=== PATIENT | female | born 1935 | race Caucasian/White ===

== ENCOUNTER 2016-12-31 10:23 | Inpatient (IN) ==
--- NOTE | 2016-12-31 11:02 | EKG Report ---
Stationary ECG Study [facility] ER Test Date: 12/31/2016 10:50:10 AM Pat Name: ANNMARIE TURKMEN Department: Room: Gender: F [employer] Sales Manager: : 1935 Requested by: David Tobin Order Number: [id number] Reading MD: ADAMA SANTIAGO Intervals [place] Rate: 72 P: 36 WV: 199 QRS: 77 QRSD: 90 T: -9 QT: 397 QTc: 421 Interpretive Statements SINUS RHYTHM LOW QRS VOLTAGE IN PRECORDIAL LEADS POSSIBLE RIGHT VENTRICULAR CONDUCTION DELAY POSIBLE SEPTAL MYOCARDIAL INFARCTION, PROBABLY OLD VERSUS PSEUDOINFARCT PATTERN Electronically Signed On 01-02-17 17:48:34 CDT by ADAMA SANTIAGO [id number]
[2016-12-31] MEDS ORDERED: PANTOPRAZOLE 40 MG VIAL IV STA (11:08)
[2016-12-31] MEDS ORDERED: ALUM/MAG/SIMETH/LIDO VISC 1:1 30 ML BOTTLE PO STA (11:08)
[2016-12-31] MEDS ORDERED: MORPHINE 2 MG/1 ML SYRINGE IV STA (11:08)
[2016-12-31] MEDS ORDERED: SODIUM CHLORIDE 0.9% 500 ML IV STA (11:08)
[2016-12-31] MEDS ORDERED: ASPIRIN 325 MG TABLET PO STA (11:08)
[2016-12-31] MEDS ORDERED: ONDANSETRON 4 MG/2 ML VIAL IV STA (11:08)
[2016-12-31] MEDS ORDERED: NITROGLYCERIN 2% OINT 1 INCH/GM PACK TOP STA (11:08)
--- NOTE | 2016-12-31 11:45 | XRay Report ---
XR chest 1V portable Indication: Chest pain Comparison: 01 April 2015 Findings: The heart and mediastinum are normal in size and configuration. The pulmonary vascularity is normal in caliber. Lung volumes are increased with prominent bronchial markings. No lung infiltrates, effusions, pneumothorax or other abnormality is demonstrated. Impression: Chronic lung changes. No acute process. PROCEDURE INTERPRETED AT [facility] DEPARTMENT OF RADIOLOGY Final Report Signed by: Dr. Rick Gifford
--- NOTE | 2016-12-31 11:45 | XRay Report ---
XR abdomen 2V Indication: Abdominal pain, epigastric area Comparison: None available Findings: No free fluid or free air seen. The bowel gas pattern appears within normal limits. No abnormal calcifications are present. No other abnormality is identified. Impression: No evidence of acute process demonstrated. PROCEDURE INTERPRETED AT [facility] DEPARTMENT OF RADIOLOGY Final Report Signed by: Dr. Rick Gifford
[2016-12-31] MEDS ORDERED: PANTOPRAZOLE 40 MG VIAL IV ONE (11:49)
[2016-12-31] MEDS ORDERED: ONDANSETRON 4 MG/2 ML VIAL ONE (11:49)
[2016-12-31] MEDS ORDERED: ALUM/MAG/SIMETH/LIDO VISC 1:1 30 ML BOTTLE PO ONE (11:50)
[2016-12-31] MEDS ORDERED: MORPHINE 2 MG/1 ML SYRINGE ONE (11:50)
--- NOTE | 2016-12-31 11:57 | Emergency Department Note ---
Mati Rivas Manpreet, am scribing for, and in the presence of, David Ardon MD 11:10. Reva Rivas Charles R, MD, personally performed the services described in this documentation, ascribed by Lucius Thorne in my presence, and it is both accurate and complete . Arrival - Arrival Chief Complaint: Non-Specific Stated Complaint: Psych ED Nursing Triage Note: Pt is a resident at [facility]. EMS was called due to pt complaining of chest pain. EMS admin 2 Nitro, and 324mg aspirin. Pt has productive cough. Pt states this might also be Gastric Reflux. Mode of Arrival: Stretcher Limitations: No Limitations Source: Patient - History of Present Illness HPI Narrative: 81 y/o female, with PMHx of HTN and COPD, is brought to the ED via EMS from [facility] with CC of CP worse under right breast onset at 0930. Pt was getting dressed when broke out in a sweat and the pain onset. Pt also c/o getting SOB and rates the pain as 3/10. Pt states the pain does not radiate anywhere and was given NTG with helped. Pt's daughter states she has had reflux problems and thought it was initially that. Pt has had no previous cardiac problems. Pt states she had nml BM and no urinary problems. Pt also states she is allergic to a nausea medicine that begins with a R. No other pains/ complaints reported to the ED. Onset (ago): hour(s) (at 0930) Consistency: constant Severity: moderate Severity scale (1-10): 3 Date of Last Menstrual Period: unknown Allergies/Adverse Reactions: Allergies Allergy/AdvReac Type Severity Reaction Status Date / Time Sulfa (Sulfonamide Allergy HIVES Verified 08/25/16 18:17 Antibiotics) methocarbamol AdvReac Vomiting Verified 05/01/15 21:17 Home Medications: Home Medications Medication Instructions Recorded Confirmed Type Lisinopril/Hydrochlorothiazide 1 each PO DAILY 11/21/14 12/31/16 History [Lisinopril-Hctz 20-12.5 mg Tab] Potassium Chloride Cap/Tab [K Dur] 10 meq PO DAILY #20 tablet 04/01/15 12/31/16 Rx Lubiprostone [Amitiza] 8 mcg PO DAILY 05/01/15 12/31/16 History Pravastatin [Pravachol] 20 mg PO DAILY 12/31/16 12/31/16 History Sertraline [Zoloft] 25 mg PO DAILY 12/31/16 12/31/16 History Review of System - Review of System 12 point system: reviewed and no additional remarkable complaints except as stated - Review of System Constitutional: Present: diaphoresis. Absent: chills, fever Respiratory: Absent: cough, respiratory distress Cardiovascular: Present: chest pain Gastrointestinal: Absent: abdominal pain, nausea, vomiting Neurological: Absent: headache, weakness, numbness, paresthesias Medical,Surgical,& Family Hx - Medical History Cardio: History of: Hypertension Psychological: History of: Anxiety Disorders, Psychiatric Problems Neurology: History of: Peripheral Neuropathy Respiratory: History of: COPD Genitourinary: History of: Recurring Urinary Tract Infections Other: Comment Only: Miscellaneous Medical Problems (PATIENT IS A POOR HISTORIAN, BROTHER UNSURE) - Family History Family History: Reports;: Family Heart Disease - Social History Smoking Status: Never smoker Frequency of Alcohol Use: None Type of Drug Use: None Exam Vital Signs: Vital Signs Temperature 97 F L 12/31/16 10:28 Pulse Rate 75 12/31/16 12:00 Respiratory Rate 15 12/31/16 12:00 Blood Pressure 145/47 12/31/16 12:00 O2 Sat by Pulse Oximetry 100 12/31/16 12:00 - General General appearance: alert - Head Head exam: Present: atraumatic, normocephalic, normal inspection - Eye Eye exam: Present: normal appearance, PERRL, EOMI - ENT ENT exam: Present: normal exam, normal oropharynx, mucous membranes moist, TM's normal bilaterally - Neck Neck exam: Present: normal inspection, full ROM, trachea midline. Absent: thyromegaly - Chest Chest inspection: Present: normal inspection, symmetric chest wall rise. Absent : tenderness - Respiratory Respiratory exam: Present: normal lung sounds bilaterally. Absent: accessory muscle use, respiratory distress - Cardiovascular Cardiovascular exam: Present: regular rate, normal rhythm, normal heart sounds. Absent: murmur, rubs, gallop - Abdominal Exam Abdominal exam: Present: soft, tenderness (Epigastric and RUQ tenderness), normal bowel sounds. Absent: distention - Extremities Exam Extremities exam: Present: normal inspection, full ROM. Absent: tenderness - Back Exam Back exam: Present: normal inspection, full ROM. Absent: tenderness - Neurological Exam Neurological exam: Present: alert, oriented X3, CN II-XII intact, reflexes normal - Psychiatric Psychiatric exam: Present: normal affect, normal mood - Skin Skin exam: Present: warm, dry, intact, normal color. Absent: pallor Course - Consultations Consultation #1: Hospitalist will admit patient Time: 13:19 Results - Labs CBC & BMP: 12/31/16 12:00 12/31/16 12:00 Lab Results: I have reviewed the patients labs Labs: Laboratory Tests 12/31/16 12/31/16 12:00 12:00 WBC 9.7 RBC 4.71 Hgb 14.7 Hct 42.3 MCV 89.8 MCH 31 MCHC 34.8 RDW 12.4 Plt Count 200 Neut % (Auto) 82.6 H Lymph % (Auto) 10.4 L Neut # (Auto) 8.1 H Lymph # (Auto) 1.0 L Urine Color Yellow Urine Appearance Clear Urine pH 8.0 Ur Specific [place] 1.011 Urine Protein Negative Urine Glucose (UA) Negative Urine Ketones Negative Urine Blood Small Urine Nitrate Negative Urine Bilirubin Negative Urine Urobilinogen < 2.0 H Urine Leukocytes Negative Urine RBC 13 Urine WBC 2 Ur Squamous Epith Cells Occasional Ur Culture Indicated? Not indicated Laboratory Tests 12/31/16 12/31/16 12:00 12:00 Sodium 137 Potassium 3.6 Chloride 102 Carbon Dioxide 26 Anion Gap 12.6 BUN 20 H Creatinine 1.20 H GFR Calculation 43 Glucose 101 Total Bilirubin 1.30 H AST 186 H ALT 101 H Alkaline Phosphatase 143 H Troponin I < 0.015 Albumin 3.7 Globulin 3.5 Albumin/Globulin Ratio 1.0 L Lipase 1077.0 H - Diagnostic Findings Procedure: Abdominal x-ray: report reviewed by me ("X-ray Abd: No evidence of acute process demonstrated."), Chest x-ray: report reviewed by me ("Chest X-ray : Chronic lung changes. No acute process."), Ultrasound: report reviewed by me ( "Gallbladder US: 1. Normal right upper quadrant sonogram.") Disposition Clinical Impression: Atypical chest pain, Pancreatitis, acute, Elevated liver enzymes, GERD ( gastroesophageal reflux disease) Case discussed with: patient, patient's family Disposition: Still a Patient Condition: Stable Time of Disposition: 13:20
[2016-12-31 12:14] LABS: Apearance,Urine CLEAR (Clear); Bilirubin,Urine Negative (Negative); Blood, Urine Small mg/dL (Negative); Glucose,Urine (UA) Negative (Negative); Ketones,Urine Negative (Negative); Nitrite,Urine Negative (Negative); Protein,Urine Negative; RBC,Urine 13 /HPF (0-4); Squamous Epithelial Cell,Urine Occasional /HPF (0-10); Urine Color Yellow (Yellow); Urine Specific Gravity 1.011 (1.001-1.035); Urine Urobilinogen < 2.0 EU/DL (0.2-1.0); WBC,Urine 2 /HPF (0-6)
[2016-12-31 12:18] LABS: Basophils % 0.2 % (0.0-0.8); Eosinophils # 0.2 10*3/uL (0.0-0.87); Eosinophils % 2.1 % (0.00-10.9); Hematocrit 42.3 VOL% (35.7-47.0); Hemoglobin 14.7 GM/DL (12.0-16.0); Immature Granulocytes % 0.3 %; Immature Granulocytes Absolute 0.03 #; Lymphocytes % 10.4 % (21.3-54.2); Mean Corpuscular HGB Conc 34.8 GM/DL (32-36); Mean Corpuscular Hemoglobin 31 PG (27-34); Mean Corpuscular Volume 89.8 FL (87-102); Monocytes # 0.4 10*3/uL (0.11-0.8); Monocytes % 4.4 % (1.7-12.7); Neutrophils # 8.1 10*3/uL (1.4-7.4); Neutrophils % 82.6 % (38.7-73.9); Platelet Count 200 T/CUMM (130-400); Red Blood Count 4.71 MC/CUMM (3.8-5.5); Red Cell Distribution Width 12.4 % (9.3-17.3); White Blood Count 9.7 T/CUMM (4-12)
--- NOTE | 2016-12-31 12:36 | Ultrasound Report ---
Exam: US gallbladder Date:12/31/2016 11:35 AM Indication: Right upper quadrant pain Comparison: None Findings: Liver: 16.9 cm. No focal abnormalities. The hepatic and portal veins are patent. Gallbladder: Normal size shape and configuration without stones. Anterior gonzalez 2.4 mm. CBD: 3.5 mm Pancreas: Normal size shape and configuration on visualized imaging Kidneys Right kidney: 8.7 x 3.5 x 3.7 cm. There is no hydronephrosis perinephric fluid collections or focal mass. IVC is patent. Ascites: None Impression: 1. Normal right upper quadrant sonogram Ultrasound images were stored and captured PROCEDURE INTERPRETED AT [facility] DEPARTMENT OF RADIOLOGY Final Report Signed by: Dr. Esteban Miller
[2016-12-31 12:48] LABS: Albumin 3.7 G/DL (3.4-5.0); Bilirubin,Total 1.3 MG/DL (0.2-1.0); Calcium 9.5 MG/DL (8.5-10.1); Magnesium 2.1 MG/DL (1.8-2.4); Osmolality,Calculated 275.8 MOS/KG (273-304); Potassium 3.6 MMOL/L (3.5-5.1); Total Protein 7.2 G/DL (6.4-8.3)
[2016-12-31] MEDS ORDERED: MORPHINE 2 MG/1 ML SYRINGE IV PRN ×2 (14:26)
[2016-12-31] MEDS ORDERED: diphenhydrAMINE CAP 25 MG CAPSULE PO PRN (14:26)
[2016-12-31] MEDS ORDERED: PROMETHAZINE 25 MG/1 ML VIAL IM PRN (14:26)
[2016-12-31] MEDS ORDERED: ONDANSETRON 4 MG/2 ML VIAL IV PRN (14:26)
[2016-12-31] MEDS ORDERED: DOCUSATE SODIUM 100 MG CAPSULE PO PRN (14:26)
[2016-12-31] MEDS ORDERED: ACETAMINOPHEN 325 MG TABLET PO PRN ×2 (14:26)
[2016-12-31] MEDS ORDERED: guaiFENesin/DM ER 600-30 MG TABLET PO PRN (14:26)
--- NOTE | 2016-12-31 14:31 | EKG Report ---
Stationary ECG Study 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
--- NOTE | 2016-12-31 14:41 | Hospitalist History & Physical ---
Assessment and Plan - Time spent with patient Time spent with patient: Greater than 30 minutes (1) Hypertension Status: Acute Assessment and plan: 81-year-old white female with history of hypertension and underlying dementia who is a resident at an assisted living facility admitted by the hospitalist service with complaints of chest pain. She is found to have acute pancreatitis and elevated liver transaminases. We will make her n.p.o. except ice chips and sips of water with medicines and start her on antibiotics, aggressive IV fluids , pain and nausea control. We will also consult GI for evaluation. Will get strict I&O to watch for any signs of heart failure. She does not have a history of CHF. Since patient did complain of some chest pain with diaphoresis will go ahead and get serial troponins and EKGs just in case to rule out cardiac origin. Dr. Lopez will see and examine patient and further recommendations to follow. Current Visit: Yes (2) Dehydration Status: Acute Current Visit: No (3) Dementia Status: Acute Current Visit: No (4) Atypical chest pain Status: Acute Current Visit: Yes (5) Pancreatitis, acute Status: Acute Current Visit: Yes (6) Elevated liver enzymes Status: Acute Current Visit: Yes (7) GERD (gastroesophageal reflux disease) Status: Acute Current Visit: Yes History of Present Illness Chief complaint: Chest pain History of present illness: Ms. Walker is a 81 year old white female with history of dementia, COPD, DJD, and hypertension presenting to the ED by ambulance from [facility] with complaints of chest pain associated with diaphoresis. Patient normally sees Dr. Angel Castro. Patient had become unsafe at home in March 2015 due to her advanced dementia, recurrent dehydration and poor nutritional status and she was placed in [facility] at that time. Patient states she was in her normal state of health until 9 AM this morning when she started complaining of chest pain along her breast line the radiated left and right. This was associated with severe sweating. She did not have shortness of breath, blurry vision, or radiation to her jaw or arms. Patient states with nitroglycerin and aspirin given by the ambulance he feels a little better but it is still there. Patient is afebrile her vital signs are stable. She does have acute kidney injury due to dehydration though mildly with creatinine of 1.2. Her total bilirubin is elevated at 1.3, AST 186, ALT 101, alkaline phosphatase 143. She does have a lipase elevated to 1077 with a normal amylase. Upon exam patient has pain in a circumferential band across her upper abdomen/lower rib cage left to right. She is tender in the epigastric and left upper quadrant region. Abdominal and chest x-rays are normal, and her gallbladder ultrasound shows normal gallbladder and pancreas. Her troponins and EKG are also unremarkable. After discussion with Dr. Ardon the ED physician and Dr. Lopez the admitting hospitalist, it was agreed patient will be admitted for further evaluation and treatment. Patient's medicines have been reconciled and she is a full code. Home Medications Medication Instructions Recorded Confirmed Type Lisinopril/Hydrochlorothiazide 1 each PO DAILY 11/21/14 12/31/16 History [Lisinopril-Hctz 20-12.5 mg Tab] Potassium Chloride Cap/Tab [K Dur] 10 meq PO DAILY #20 tablet 04/01/15 12/31/16 Rx Lubiprostone [Amitiza] 8 mcg PO DAILY 05/01/15 12/31/16 History Pravastatin [Pravachol] 20 mg PO DAILY 12/31/16 12/31/16 History Sertraline [Zoloft] 25 mg PO DAILY 12/31/16 12/31/16 History Allergies Allergy/AdvReac Type Severity Reaction Status Date / Time Sulfa (Sulfonamide Allergy HIVES Verified 08/25/16 18:17 Antibiotics) methocarbamol AdvReac Vomiting Verified 05/01/15 21:17 Medical,Surgical,& Family Hx - Medical History Cardio: History of: Hypertension Psychological: History of: Anxiety Disorders, Depression, Psychiatric Problems Neurology: History of: Peripheral Neuropathy Respiratory: History of: COPD Genitourinary: History of: Recurring Urinary Tract Infections Other: Comment Only: Miscellaneous Medical Problems (PATIENT IS A POOR HISTORIAN, BROTHER UNSURE) - Surgical History Abdominal Surgeries: Patient denies: Abdominal Surgery Orthopedic Surgeries: Patient denies;: Orthopedic Surgery - Family History Family History: Reports;: Family Heart Disease - Social History Smoking Status: Never smoker Frequency of Alcohol Use: None Type of Drug Use: None Marital Status: Lives With:: Assisted-living Functional capacity: uses cane/walker 12 point system: reviewed and no additional remarkable complaints except as stated Exam - Constitutional Vitals: Period Temp Pulse Resp BP Sys/Oneil Pulse Ox Last 24 Hr 97 F-97 F 73-84 15-23 120-149/47-61 99-100 Exam: Constitutional System: No distress. [No] tremulousness. Head: Normocephalic, atraumatic. Ears, Nose and Throat System: No evidence of Otitis or Mastoiditis. No epistaxis or discharge Eyes System: Pupils equal, round, and reactive. Extraocular muscles intact. Neck: Supple, without adenopathy, [No] jugular venous distention. No thyromegaly , neck mass, or prior surgery apparent. Respiratory System: Chest [clear] to auscultation. Cardiovascular System: Heart with [regular] rate and rhythm. [No] murmur. GI System: Abdomen [soft], moderately tender in epigastric and left upper quadrant. [Normo]active bowel sounds present. Musculoskeletal System: limbs with mild pedal edema. [Full] distal pulses. Neurological System: [No discernable] sensory deficit. [No] aphasia Psychiatric System: Conversation is rational but she can tell she has some form of dementia Results - Labs CBC & BMP: 12/31/16 12:00 12/31/16 12:00 Lab Results: I have reviewed the past 24 hour labs - EKG EKG results: sinus rhythm - Diagnostic Findings Procedure: Abdominal x-ray: report reviewed by me (No acute process), Chest x- ray: report reviewed by me (No acute process), Ultrasound: report reviewed by me (Gallbladder ultrasound shows no acute process)
[2016-12-31 14:55] LABS: Risk Ratio 4.58; VLDL CHOLESTEROL 30.4 MG/DL
--- NOTE | 2016-12-31 15:11 | Gastrointestinal Consult Note ---
Assessment and Plan (1) Atypical chest pain Status: Acute Assessment and plan: 12/31-sudden onset of upper quadrant abdominal pain with associated diaphoresis. Findings on admission of elevated lipase as well as elevated LFTs. Gallbladder ultrasound unremarkable. No known prior history of pancreatitis in the past. Triglycerides unremarkable at 152. Notation of elevated LFTs with her prior hospitalization. Further plan an addendum to followed by Dr. Myers. Current Visit: Yes History of Present Illness Chief complaint: Atypical chest pain, pancreatitis History of present illness: Ms. Walker is a 81 year old female who was admitted to the hospital today after complaints of chest pain. Patient has a prior history of dementia, COPD, hypertension, and DJD. She is a fairly poor historian and no family is present to accompany her during the visit. Information is obtained from chart review as well as patient interview. Patient is a resident [facility] for the past 2 years. She reportedly was in her usual state of health until this morning following breakfast she had a fairly sudden onset of pain in her upper abdomen that radiated across under her rib cage to the left and right quadrants. She also states that she had a sudden onset of sweating episode. She does not recall having any nausea or vomiting or any other associated symptoms at that time. She states she has never had this pain before. She denies any associated shortness of breath or radiation of pain any other areas. Patient was then brought to the hospital for further evaluation. On admission she was felt to be dehydrated with a creatinine of 1.2. She had a no findings of gallstones as well. She she also is noted to have elevated LFTs with a bilirubin 1.3, AST 186, ALT 101, alkaline phosphatase 143. Cardiac enzymes are negative at this time. She is without leukocytosis and no anemia noted. Her home medications are reviewed and she is noted to be on HCTZ. She is also noted to be on Pravachol. Her lab values were reviewed from prior hospitalization in 2014 for dehydration and UTI. She is also noted at that time to have elevated LFTs. There was no follow-up noted further evaluation noted at that time for this finding. Patient is also noted at that time to have a history of dysarthria which is also noted today. UA is also unremarkable today. She does not have a history of tobacco or alcohol use in the past. Home Medications Medication Instructions Recorded Confirmed Type Lisinopril/Hydrochlorothiazide 1 each PO DAILY 11/21/14 12/31/16 History [Lisinopril-Hctz 20-12.5 mg Tab] Potassium Chloride Cap/Tab [K Dur] 10 meq PO DAILY #20 tablet 04/01/15 12/31/16 Rx Lubiprostone [Amitiza] 8 mcg PO DAILY 05/01/15 12/31/16 History Pravastatin [Pravachol] 20 mg PO DAILY 12/31/16 12/31/16 History Sertraline [Zoloft] 25 mg PO DAILY 12/31/16 12/31/16 History Allergies Allergy/AdvReac Type Severity Reaction Status Date / Time Sulfa (Sulfonamide Allergy HIVES Verified 08/25/16 18:17 Antibiotics) methocarbamol AdvReac Vomiting Verified 05/01/15 21:17 Medical,Surgical,& Family Hx - Medical History Cardio: History of: Hypertension Psychological: History of: Anxiety Disorders, Depression, Psychiatric Problems Neurology: History of: Peripheral Neuropathy Respiratory: History of: COPD Genitourinary: History of: Recurring Urinary Tract Infections Other: Comment Only: Miscellaneous Medical Problems (PATIENT IS A POOR HISTORIAN, BROTHER UNSURE) - Surgical History Abdominal Surgeries: Patient denies: Abdominal Surgery Orthopedic Surgeries: Patient denies;: Orthopedic Surgery - Family History Family History: Reports;: Family Heart Disease - Social History Smoking Status: Never smoker Frequency of Alcohol Use: None Type of Drug Use: None 12 point system: reviewed and no additional remarkable complaints except as stated - Constitutional Constitutional: Present: as per HPI - EENT Eyes: Present: as per HPI Ears: Present: as per HPI Nose, mouth and throat: Present: as per HPI - Cardiovascular Cardiovascular: Present: as per HPI - Respiratory Respiratory: Present: as per HPI - Gastrointestinal Gastrointestinal: Present: as per HPI, abdominal pain - Genitourinary Genitourinary: Present: as per HPI - Musculoskeletal Musculoskeletal: Present: as per HPI - Neurological Neurological: Present: as per HPI - Psychiatric Psychiatric: Present: as per HPI - Endocrine Endocrine: Present: as per HPI - Hematologic/Lymphatic Hematologic/Lymphatic: Present: as per HPI Exam - Constitutional Vitals: Period Temp Pulse Resp BP Sys/Oneil Pulse Ox Last 24 Hr 97 F-97 F 73-84 15-23 120-149/47-61 99-100 General appearance: normal weight, no acute distress - Head Head exam: Present: normal inspection, normocephalic - Eye Eye exam: Present: other (Lids and conjunctivae are unremarkable). Absent: scleral icterus - ENT ENT exam: Present: normal exam, normal oropharynx - Neck Neck exam: Present: normal inspection - Respiratory Respiratory exam: Present: clear to auscultation bilaterally. Absent: rales, rhonchi, wheezes - Cardiovascular Cardiovascular exam: Present: regular rate and rhythm. Absent: diastolic murmur , JVD, systolic murmur - GI/Abdominal GI/Abdominal exam: Present: normal bowel sounds, soft. Absent: ascites, distended, mass, organomegaly, tenderness - Extremities Exam Extremities exam: Present: normal inspection, full ROM - Back Exam Back exam: Present: normal inspection - Neurological Exam Neurological exam: Present: alert, oriented X3 - Psychiatric Psychiatric exam: Present: normal affect, normal mood - Skin Skin exam: Present: normal color, warm, dry Results - Labs CBC & BMP: 12/31/16 12:00 12/31/16 12:00 Lab Results: I have reviewed the past 24 hour labs - Diagnostic Findings Procedure: Ultrasound: report reviewed by me
[2016-12-31] MEDS: SODIUM CHLORIDE 0.45% 1,000 ML IV SCH (16:43)
[2016-12-31] MEDS: metroNIDAZOLE INJ 500 MG in PREMIX 1 EACH IV SCH ×2 (16:44→22:03)
[2016-12-31] MEDS: PANTOPRAZOLE 40 MG TABLET PO SCH (16:54)
[2016-12-31] MEDS: SERTRALINE 25 MG TABLET PO SCH (17:04)
[2016-12-31] MEDS: POTASSIUM CHLORIDE 10 MEQ TABLET PO SCH (17:04)
[2016-12-31] MEDS: PRAVASTATIN 20 MG TABLET PO SCH (17:04)
[2016-12-31] MEDS: LISINOPRIL/HCTZ 20-12.5 MG TABLET PO SCH (17:04)
[2016-12-31] MEDS: LUBIPROSTONE 8 MCG CAPSULE PO SCH (17:04)
--- NOTE | 2016-12-31 17:59 | EKG Report ---
Stationary ECG Study [facility] Test Date: 12/31/2016 6:01:02 PM Pat Name: ANNMARIE FLATWOODS Department: Room: 294 Gender: F Doctor Of Medicine: CHELSI : 1935 Requested by: David Tobin Order Number: [id number] Rhonda MD: ADAMA SANTIAGO Intervals [place] Rate: 84 P: 999 [place]: 0 QRS: 111 QRSD: 75 T: 223 QT: 216 QTc: 257 Interpretive Statements LIMITED TRACING WITH TOO MUCH ARTIFACT TO ADEQUATELY INTERPET Electronically Signed On 01-02-17 18:10:02 CDT by ADAMA SANTIAGO [email or web address]
[2016-12-31] MEDS: ENOXAPARIN 40 MG/0.4 ML SYRINGE SUBCUT SCH (18:00)
[2016-12-31] MEDS: PIPERACILLIN/TAZOBACTAM 3,375 MG in SODIUM CHLORIDE 0.9% 100 ML IV SCH (18:01)
[2017-01-01] MEDS: SODIUM CHLORIDE 0.45% 1,000 ML IV SCH ×5 (01:50→22:33)
[2017-01-01] MEDS: PIPERACILLIN/TAZOBACTAM 3,375 MG in SODIUM CHLORIDE 0.9% 100 ML IV SCH ×3 (01:51→16:57)
[2017-01-01 05:11] LABS: Basophils % 0.3 % (0.0-0.8); Eosinophils % 0.3 % (0.00-10.9); Hematocrit 37.2 VOL% (35.7-47.0); Hemoglobin 13.1 GM/DL (12.0-16.0); Immature Granulocytes % 0.4 %; Immature Granulocytes Absolute 0.03 #; Lymphocytes # 0.6 10*3/uL (1.4-4.0); Lymphocytes % 7.8 % (21.3-54.2); Mean Corpuscular HGB Conc 35.2 GM/DL (32-36); Mean Corpuscular Hemoglobin 32 PG (27-34); Mean Corpuscular Volume 90.5 FL (87-102); Mean Platelet Volume 10.2 FL (9.6-12.0); Monocytes # 0.4 10*3/uL (0.11-0.8); Monocytes % 5.3 % (1.7-12.7); Neutrophils # 6.2 10*3/uL (1.4-7.4); Neutrophils % 85.9 % (38.7-73.9); Platelet Count 198 T/CUMM (130-400); Red Blood Count 4.11 MC/CUMM (3.8-5.5); Red Cell Distribution Width 12.7 % (9.3-17.3); White Blood Count 7.2 T/CUMM (4-12)
[2017-01-01] MEDS: metroNIDAZOLE INJ 500 MG in PREMIX 1 EACH IV SCH ×4 (05:48→22:30)
[2017-01-01 05:49] LABS: Bilirubin,Total 2.3 MG/DL (0.2-1.0); Calcium 8.6 MG/DL (8.5-10.1); Magnesium 1.9 MG/DL (1.8-2.4); Osmolality,Calculated 275.8 MOS/KG (273-304); Potassium 3.8 MMOL/L (3.5-5.1)
--- NOTE | 2017-01-01 07:38 | Hospitalist Progress Note ---
Assessment and Plan (1) Cognitive changes Status: Chronic Current Visit: Yes (2) Pancreatitis, acute Status: Acute Assessment and plan: No readily apparent etiology. Patient's gallbladder ultrasound was unremarkable. This is associated with abnormal transaminase levels and a mildly cholestatic pattern. GI has evaluated the patient with pending decision regarding CT scan of the abdomen. Current Visit: Yes Hospitalist: Subjective Interval history: 81-year-old female with dementia who presented with the acute onset of upper abdominal pain unassociated with emesis. The patient in the emergency room demonstrated elevated lipase level with elevated AST, ALT, alkaline phosphatase , and total bilirubin. She states this morning she feels well and her vital signs were stable overnight. Her cardiac troponins have returned negative. Repeat laboratory work demonstrates an increase in the total bilirubin, AST, ALT , and alkaline phosphatase compared to initial presentation and her lipase is persistently elevated. Exam - Constitutional Vitals: Period Temp Pulse Resp BP Sys/Oneil Pulse Ox Last 24 Hr 97 F-99.4 F 72-89 15-23 120-170/47-74 95-100 General appearance: normal weight - Respiratory Respiratory exam: Present: clear to auscultation bilaterally. Absent: rales, rhonchi, wheezes - Cardiovascular Cardiovascular exam: Present: regular rate and rhythm, systolic murmur (1/6 basilar systolic murmur without rate) - GI/Abdominal GI/Abdominal exam: Present: normal bowel sounds. Absent: distended, organomegaly, tenderness, rebound - Extremities Exam Extremities exam: Absent: edema - Neurological Exam Neurological exam: Present: alert. Absent: oriented X3 Results - Labs CBC & BMP: 01/01/17 04:48 01/01/17 04:48 Labs: Lipase 1268 Total bilirubin 2.3 AST 190 ALT 179 Alkaline phosphatase 161
[2017-01-01] MEDS: LISINOPRIL/HCTZ 20-12.5 MG TABLET PO SCH (09:48)
[2017-01-01] MEDS: LUBIPROSTONE 8 MCG CAPSULE PO SCH (09:49)
[2017-01-01] MEDS: SERTRALINE 25 MG TABLET PO SCH (09:50)
[2017-01-01] MEDS: PRAVASTATIN 20 MG TABLET PO SCH (09:51)
[2017-01-01] MEDS: POTASSIUM CHLORIDE 10 MEQ TABLET PO SCH (09:51)
[2017-01-01] MEDS: PANTOPRAZOLE 40 MG TABLET PO SCH (09:52)
--- NOTE | 2017-01-01 10:03 | Gastrointestinal Progress Note ---
Assessment and Plan (1) Atypical chest pain Status: Acute Assessment and plan: 01/01-no complaints of pain. Noted increase in LFTs and lipase level. Tolerating ice chips and water. Continue to monitor present time. Plan an addendum to followed by Dr. Myers. 12/31-sudden onset of upper quadrant abdominal pain with associated diaphoresis. Findings on admission of elevated lipase as well as elevated LFTs. Gallbladder ultrasound unremarkable. No known prior history of pancreatitis in the past. Triglycerides unremarkable at 152. Notation of elevated LFTs with her prior hospitalization. Further plan an addendum to followed by Dr. Myers. Current Visit: Yes Gastroenterology - PN: Subj Interval history: CC: ATypical chest pain, pancreatitis Patient is seen awake and alert lying in bed. States she did rest well last night. She is denying any chest pain, abdominal pain, nausea or vomiting. She is afebrile. She is noted to have an elevation in her LFTs as well as her lipase today. Lipase is noted at 1268, bilirubin 2.3, AST 190, ALT 179, alkaline phosphatase 161. She is continuing on ice chips and sips of water at this time. Abdomen is soft, nontender. We will continue to monitor this time and will consider CT scan if her LFTs continue to rise or if she develops any acute pain since admission. ROS: Denies shortness of breath or chest pain Exam (Progress Note) - Constitutional Vitals: Period Temp Pulse Resp BP Sys/Oneil Pulse Ox Last 24 Hr 97 F-99.4 F 72-89 15-23 120-170/47-74 95-100 - Other Additional findings: General appearance: normal weight, no acute distress - Head Head exam: Present: normal inspection, normocephalic - Eye Eye exam: Present: other (Lids and conjunctivae are unremarkable). Absent: scleral icterus - ENT ENT exam: Present: normal exam, normal oropharynx - Neck Neck exam: Present: normal inspection - Respiratory Respiratory exam: Present: clear to auscultation bilaterally. Absent: rales, rhonchi, wheezes - Cardiovascular Cardiovascular exam: Present: regular rate and rhythm. Absent: diastolic murmur , JVD, systolic murmur - GI/Abdominal GI/Abdominal exam: Present: normal bowel sounds, soft. Absent: ascites, distended, mass, organomegaly, tenderness - Extremities Exam Extremities exam: Present: normal inspection, full ROM - Back Exam Back exam: Present: normal inspection - Neurological Exam Neurological exam: Present: alert, oriented X3 - Psychiatric Psychiatric exam: Present: normal affect, normal mood - Skin Skin exam: Present: normal color, warm, dry Results - Labs CBC & BMP: 01/01/17 04:48 01/01/17 04:48 Lab Results: I have reviewed the past 24 hour labs
--- NOTE | 2017-01-01 13:31 | CT Report ---
CT abdomen Indication: Elevated liver function tests, elevated lipase Comparison: None available Technique: Axial CT imaging of the abdomen is performed with intravenous and oral contrast. Contrast dose is 100 cc of Omnipaque 350. Findings: Cardiac and lung bases are within normal limits CT abdomen: The liver spleen pancreas and adrenal glands are normal in size and enhancement. No evidence of focal lesion is demonstrated in these solid organs. Kidneys are normal in size and enhancement. No evidence of hydronephrosis or nephrolithiasis is seen. The bowel caliber is normal and no wall thickening or adjacent inflammatory change is seen. No evidence of free fluid or free air is present. Impression: No evidence of abnormality demonstrated. This CT exam was performed using one or more the following dose reduction techniques: Automated exposure control, adjustment of the MA and/or KV according to patient size, or use of iterative reconstruction technique. PROCEDURE INTERPRETED AT [facility] DEPARTMENT OF RADIOLOGY Final Report Signed by: Dr. Rick Gifford
[2017-01-01] MEDS: ENOXAPARIN 40 MG/0.4 ML SYRINGE SUBCUT SCH (15:48)
[2017-01-02] MEDS: PIPERACILLIN/TAZOBACTAM 3,375 MG in SODIUM CHLORIDE 0.9% 100 ML IV SCH ×2 (00:45→10:00)
[2017-01-02] MEDS: metroNIDAZOLE INJ 500 MG in PREMIX 1 EACH IV SCH ×2 (04:45→09:25)
[2017-01-02 06:30] LABS: Bilirubin,Total 1.8 MG/DL (0.2-1.0); Calcium 8.6 MG/DL (8.5-10.1); Osmolality,Calculated 278.5 MOS/KG (273-304); Potassium 3.2 MMOL/L (3.5-5.1); Total Protein 5.9 G/DL (6.4-8.3)
[2017-01-02] MEDS: PANTOPRAZOLE 40 MG TABLET PO SCH (08:43)
[2017-01-02] MEDS: POTASSIUM CHLORIDE 10 MEQ TABLET PO SCH (08:43)
[2017-01-02] MEDS: LISINOPRIL/HCTZ 20-12.5 MG TABLET PO SCH (08:44)
[2017-01-02] MEDS: LUBIPROSTONE 8 MCG CAPSULE PO SCH (08:44)
[2017-01-02] MEDS: SERTRALINE 25 MG TABLET PO SCH (08:44)
[2017-01-02] MEDS: PRAVASTATIN 20 MG TABLET PO SCH (08:45)
[2017-01-02] MEDS: SODIUM CHLORIDE 0.45% 1,000 ML IV SCH ×3 (08:50→13:30)
--- NOTE | 2017-01-02 10:52 | Discharge Summary ---
Hospital Course - Hospital Course Hospital Course: The patient was admitted to hospital with acute onset right upper quadrant and epigastric discomfort. The patient was found to have elevated lipase and bilirubin. Lipase improved rather quickly consistent with transient acute pancreatitis. Bilirubin took 36 hours peak and began falling consistent with a passed gallstone. The patient's symptoms were relatively mild and it was Dr. Myers something of that cholecystectomy was not indicated. The patient is improved and is ready for discharge home to resume taking usual medications. The patient lives in [facility]. On the date of discharge chest is clear, heart has regular rate and rhythm abdomen is soft. She has some residual epigastric and right upper quadrant discomfort. Patient medications were reconciled upon admission, and again at the time of discharge. The patient was screened for tobacco use and found to be a never smoker. The patient's medical decsion maker is themself, and when asked, they asked to be Full code. Discharge Time was 35 minutes, including final examination, evaluation and planning, education, reconciliation of medications, writing prescriptions, coordinating care with case operator, and preparing discharge documentation. - Time spent with patient Time with patient DS: Greater than 30 minutes Diagnosis - Discharge Diagnosis (1) Acute gallstone pancreatitis Status: Resolved Discharge Plan - Discharge Data Disposition: Disch To Home/Self Care Condition at Discharge: Stable Discharge Diet: advance to your usual diet Activity: resume usual activities as tolerated - Discharge Medications Continue Lisinopril/Hydrochlorothiazide [Lisinopril-Hctz 20-12.5 mg Tab] 1 each PO DAILY Potassium Chloride Cap/Tab [K Dur] 10 meq PO DAILY #20 tablet Lubiprostone [Amitiza] 8 mcg PO DAILY Pravastatin [Pravachol] 20 mg PO DAILY Sertraline [Zoloft] 25 mg PO DAILY - Follow Up or Referral - Forms/Instructions Exam - Constitutional Vitals: Period Temp Pulse Resp BP Sys/Oneil Pulse Ox Last 24 Hr 97 F-98.3 F 64-76 17-20 121-157/60-83 95-100 Discharge Results Labs on day of discharge: Labs from last 24 hours 01/02/17 05:39 Sodium 139 Potassium 3.2 L Chloride 106 Carbon Dioxide 26 Anion Gap 10.2 BUN 14 Creatinine 1.20 H GFR Calculation 43 BUN/Creatinine Ratio 11.00 Glucose 109 H Calculated Osmolality 278.5 Calcium 8.6 Total Bilirubin 1.80 H AST 73 H ALT 109 H Alkaline Phosphatase 139 H Total Protein 5.9 L Albumin 3.0 L Globulin 2.9 Albumin/Globulin Ratio 1.0 L DS: Provider Date of admission: 12/31/16 13:26 Primary care physician: . No PCP Attending physician on admission: Clint Lopez MD Consults: 12/31/16 14:26 Consult to Physician [CONS] Routine Comment: elevated LFTs w pancreatitis Consulting Provider: Esteban Myers When should Consulting Provider be notified: Now Person Notified: CHRISTINA Date Notified: 12/31/16 Time Notified: 16:15 01/01/17 12:10 Consult to Physical Therapy [CONS] Routine Reason for Physical Therapy: Evaluate and Treat Consult Comment: if cant see today, please evalutate this weekend Discharging clinician: Jaun Gongora MD
[2017-01-02 11:45] VITALS: BP 144/78
== END 2017-01-02 13:40 | disposition home or self-care (01) | DRG 439 ==
LOC: EDBD → EDUNIT# → N.ED 10:23 → SUATTDRO 13:26 → N.EDINP 13:26 → N.TELEN 15:51
PROVIDERS: ADMIT Internal Medicine Cardiovascular Disease; ATTEND Internal Medicine

== ENCOUNTER 2020-05-24 10:19 | Observation (INO) ==
[2020-05-24 11:05] LABS: Basophils % 0.2 % (0.0-0.8); Eosinophils # 0.2 10*3/uL (0.0-0.87); Eosinophils % 2.7 % (0.00-10.9); Hematocrit 40.3 VOL% (35.7-47.0); Hemoglobin 13.5 GM/DL (12.0-16.0); Immature Granulocytes % 0.4 %; Immature Granulocytes Absolute 0.03 #; Lymphocytes # 1.1 10*3/uL (1.4-4.0); Lymphocytes % 12.3 % (21.3-54.2); Mean Corpuscular HGB Conc 33.5 GM/DL (32-36); Mean Corpuscular Volume 90.6 FL (87-102); Mean Platelet Volume 10.6 FL (9.6-12.0); Monocytes % 5.5 % (1.7-12.7); Neutrophils % 78.9 % (38.7-73.9); Platelet Count 208 T/CUMM (130-400); Red Blood Count 4.45 MC/CUMM (3.8-5.5); Red Cell Distribution Width 13.2 % (9.3-17.3); White Blood Count 8.6 T/CUMM (4-12)
[2020-05-24 11:26] LABS: Albumin 3.3 G/DL (3.4-5.0); Bilirubin,Total 0.5 MG/DL (0.2-1.0); Calcium 9.2 MG/DL (8.5-10.1); Osmolality,Calculated 280.5 MOS/KG (273-304); Potassium 3.2 MMOL/L (3.5-5.1); Total Protein 7.9 G/DL (6.4-8.3)
[2020-05-24] MEDS ORDERED: POTASSIUM CHLORIDE 20 MEQ TABLET PO STA (11:57)
[2020-05-24] MEDS ORDERED: diphenhydrAMINE CAP 25 MG CAPSULE PO PRN (13:19)
[2020-05-24] MEDS ORDERED: ONDANSETRON 4 MG/2 ML VIAL IV PRN (13:19)
[2020-05-24] MEDS ORDERED: DEXTROSE 50% 25 GM/50 ML VIAL IV PRN (13:19)
[2020-05-24] MEDS ORDERED: guaiFENesin/DM ER 600-30 MG TABLET PO PRN (13:19)
[2020-05-24] MEDS ORDERED: CALCIUM CARBONATE CHEW 500 MG TABLET PO PRN (13:19)
[2020-05-24] MEDS ORDERED: SIMETHICONE CHEW 125 MG TABLET PO PRN (13:19)
[2020-05-24] MEDS ORDERED: NICOTINE 21 MG/24 HR PATCH TRANSDERM PRN (13:19)
[2020-05-24] MEDS ORDERED: ALUMINUM/MAGNES/SIMETH MAX STR 30 ML UDCUP PO PRN (13:19)
[2020-05-24] MEDS ORDERED: GLUCAGON 1 MG VIAL IM PRN (13:19)
[2020-05-24] MEDS ORDERED: ACETAMINOPHEN 325 MG TABLET PO PRN (13:19)
[2020-05-24] MEDS ORDERED: ZALEPLON 5 MG CAPSULE PO PRN (13:19)
[2020-05-24] MEDS ORDERED: PROMETHAZINE 25 MG/1 ML VIAL IM PRN (13:19)
[2020-05-24] MEDS ORDERED: hydrALAZINE 20 MG/1 ML VIAL IV PRN (13:19)
[2020-05-24 14:37] LABS: Bilirubin,Urine Negative (Negative); Blood, Urine Negative (Negative); Glucose,Urine (UA) Negative (Negative); Ketones,Urine Negative (Negative); Nitrite,Urine Negative (Negative); Protein,Urine Negative; RBC,Urine <1 /HPF (0-4); Squamous Epithelial Cell,Urine Occasional /HPF (0-10); Urine Appearance CLEAR (Clear); Urine Color Yellow (Yellow); Urine Specific Gravity 1.008 (1.001-1.035); Urine Urobilinogen < 2.0 EU/DL (0.2-1.0); WBC,Urine 2 /HPF (0-6)
[2020-05-24] MEDS ORDERED: cefTRIAXone 1,000 MG VIAL ONE (14:58)
[2020-05-24] MEDS: cefTRIAXone 1,000 MG in SYRINGE 1 EACH IV SCH (15:08)
[2020-05-24] MEDS: metroNIDAZOLE INJ 500 MG in PREMIX 1 EACH IV SCH ×2 (16:50→23:46)
[2020-05-24] MEDS: tiZANidine 4 MG TABLET PO SCH ×2 (16:50→23:46)
[2020-05-24] MEDS: ENOXAPARIN 30 MG/0.3 ML SYRINGE SUBCUT SCH (20:30)
[2020-05-25] MEDS: DEXT 5% NACL 0.9% KCL 40 MEQ 40 MEQ/1,000 ML BAG IV SCH ×2 (01:10→15:25)
[2020-05-25 04:50] LABS: Basophils % 0.5 % (0.0-0.8); Eosinophils # 0.4 10*3/uL (0.0-0.87); Eosinophils % 6.4 % (0.00-10.9); Hematocrit 34.5 VOL% (35.7-47.0); Hemoglobin 11.6 GM/DL (12.0-16.0); Immature Granulocytes % 0.5 %; Immature Granulocytes Absolute 0.03 #; Lymphocytes # 1.3 10*3/uL (1.4-4.0); Lymphocytes % 19.7 % (21.3-54.2); Mean Corpuscular HGB Conc 33.6 GM/DL (32-36); Mean Platelet Volume 10.8 FL (9.6-12.0); Monocytes % 6.8 % (1.7-12.7); Neutrophils % 66.1 % (38.7-73.9); Platelet Count 185 T/CUMM (130-400); Red Blood Count 3.75 MC/CUMM (3.8-5.5); Red Cell Distribution Width 13.4 % (9.3-17.3); White Blood Count 6.6 T/CUMM (4-12)
[2020-05-25 05:29] LABS: Alanine Aminotransferase 11 U/L (13-56); Albumin 2.8 G/DL (3.4-5.0); Alkaline Phosphatase 64 U/L (45-117); Aspartate Amino Transferase 15 U/L (0-37); Bilirubin,Total < 0.39 MG/DL (0.2-1.0); Blood Urea Nitrogen 23 MG/DL (7-18); Calcium 8.7 MG/DL (8.5-10.1); Carbon Dioxide 24 MMOL/L (21-32); Estimated Glom Filtration Rate 35 ML/MIN; Glucose 115 MG/DL (74-106); Osmolality,Calculated 281.5 MOS/KG (273-304); Potassium 3.9 MMOL/L (3.5-5.1); Sodium 139 MMOL/L (136-145); Total Protein 6.7 G/DL (6.4-8.3)
[2020-05-25] MEDS: tiZANidine 4 MG TABLET PO SCH ×3 (07:25→21:40)
[2020-05-25] MEDS: metroNIDAZOLE INJ 500 MG in PREMIX 1 EACH IV SCH ×2 (07:25→14:15)
[2020-05-25] MEDS: SERTRALINE 25 MG TABLET PO SCH (09:34)
[2020-05-25] MEDS: lisinopriL 20 MG TABLET PO SCH (09:35)
[2020-05-25] MEDS: hydroCHLOROthiazide 12.5 MG CAPSULE PO SCH (09:35)
[2020-05-25] MEDS: OMEGA 3 ACID ETHYL ESTERS 1 GM CAPSULE PO SCH (09:35)
[2020-05-25] MEDS: SIMVASTATIN 10 MG TABLET PO SCH (09:35)
[2020-05-25] MEDS: PANTOPRAZOLE 40 MG TABLET PO SCH (09:35)
[2020-05-25] MEDS: cefTRIAXone 1,000 MG in SYRINGE 1 EACH IV SCH (13:52)
[2020-05-25] MEDS: ENOXAPARIN 30 MG/0.3 ML SYRINGE SUBCUT SCH (21:41)
[2020-05-26] MEDS: metroNIDAZOLE INJ 500 MG in PREMIX 1 EACH IV SCH ×4 (00:06→22:04)
[2020-05-26 06:08] LABS: Calcium 8.5 MG/DL (8.5-10.1); Osmolality,Calculated 282.3 MOS/KG (273-304)
[2020-05-26] MEDS: tiZANidine 4 MG TABLET PO SCH ×3 (06:10→22:15)
[2020-05-26] MEDS: DEXT 5% NACL 0.9% KCL 40 MEQ 40 MEQ/1,000 ML BAG IV SCH (06:10)
[2020-05-26] MEDS: lisinopriL 20 MG TABLET PO SCH (09:42)
[2020-05-26] MEDS: SIMVASTATIN 10 MG TABLET PO SCH (09:42)
[2020-05-26] MEDS: SERTRALINE 25 MG TABLET PO SCH (09:42)
[2020-05-26] MEDS: hydroCHLOROthiazide 12.5 MG CAPSULE PO SCH (09:42)
[2020-05-26] MEDS: PANTOPRAZOLE 40 MG TABLET PO SCH (09:42)
[2020-05-26] MEDS: OMEGA 3 ACID ETHYL ESTERS 1 GM CAPSULE PO SCH (09:46)
[2020-05-26] MEDS: cefTRIAXone 1,000 MG in SYRINGE 1 EACH IV SCH (14:45)
[2020-05-26] MEDS: ENOXAPARIN 30 MG/0.3 ML SYRINGE SUBCUT SCH (22:03)
[2020-05-27 03:37] LABS: Basophils % 0.5 % (0.0-0.8); Eosinophils # 0.4 10*3/uL (0.0-0.87); Eosinophils % 6.8 % (0.00-10.9); Hematocrit 36.1 VOL% (35.7-47.0); Hemoglobin 11.9 GM/DL (12.0-16.0); Immature Granulocytes % 0.5 %; Immature Granulocytes Absolute 0.03 #; Lymphocytes # 1.3 10*3/uL (1.4-4.0); Lymphocytes % 19.3 % (21.3-54.2); Mean Corpuscular Volume 91.4 FL (87-102); Mean Platelet Volume 10.5 FL (9.6-12.0); Monocytes % 7.6 % (1.7-12.7); Neutrophils % 65.3 % (38.7-73.9); Platelet Count 177 T/CUMM (130-400); Red Blood Count 3.95 MC/CUMM (3.8-5.5); Red Cell Distribution Width 13.4 % (9.3-17.3); White Blood Count 6.5 T/CUMM (4-12)
[2020-05-27 04:05] LABS: Calcium 8.6 MG/DL (8.5-10.1); Osmolality,Calculated 285.1 MOS/KG (273-304); Potassium 4.3 MMOL/L (3.5-5.1)
[2020-05-27] MEDS: metroNIDAZOLE INJ 500 MG in PREMIX 1 EACH IV SCH (06:13)
[2020-05-27] MEDS: tiZANidine 4 MG TABLET PO SCH ×2 (06:17→14:56)
[2020-05-27] MEDS: OMEGA 3 ACID ETHYL ESTERS 1 GM CAPSULE PO SCH (09:24)
[2020-05-27] MEDS: lisinopriL 20 MG TABLET PO SCH (09:24)
[2020-05-27] MEDS: hydroCHLOROthiazide 12.5 MG CAPSULE PO SCH (09:25)
[2020-05-27] MEDS: SERTRALINE 25 MG TABLET PO SCH (09:25)
[2020-05-27] MEDS: PANTOPRAZOLE 40 MG TABLET PO SCH (09:25)
[2020-05-27] MEDS ORDERED: MAGNESIUM SULF RIDER 2 GM in PREMIX 1 EACH IV ONE (11:33)
[2020-05-27 11:52] VITALS: BP 137/66
[2020-05-27] MEDS: cefTRIAXone 1,000 MG in SYRINGE 1 EACH IV SCH (15:08)
[2020-05-27] MEDS ORDERED: SIMVASTATIN 10 MG TABLET PO SCH (21:00)
[2020-06-02 23:21] LABS: CDT Specimen Source STOOL
[2020-06-04 11:54] LABS: CDT Result Positive (Negative)
== END 2020-05-27 16:05 ==
LOC: EDBD → EDUNIT# → N.ED 10:19 → N.EDINP 10:19 → SUATTDRO 14:48 → N.EDINP 15:31 → N.3E 15:47
PROVIDERS: ADMIT Internal Medicine; ATTEND Internal Medicine

== ENCOUNTER 2020-12-29 00:52 | Observation (INO) ==
[2020-12-29] MEDS ORDERED: MORPHINE 2 MG/1 ML SYRINGE IV STA (01:24)
[2020-12-29 01:51] LABS: Basophils % 0.7 % (0.0-0.8); Eosinophils # 0.5 10*3/uL (0.0-0.87); Eosinophils % 7.6 % (0.00-10.9); Hematocrit 42.5 VOL% (35.7-47.0); Hemoglobin 13.9 GM/DL (12.0-16.0); Immature Granulocytes % 0.5 %; Immature Granulocytes Absolute 0.03 #; Lymphocytes # 1.3 10*3/uL (1.4-4.0); Lymphocytes % 21.8 % (21.3-54.2); Mean Corpuscular HGB Conc 32.7 GM/DL (32-36); Mean Corpuscular Volume 91.8 FL (87-102); Mean Platelet Volume 9.8 FL (9.6-12.0); Monocytes % 7.9 % (1.7-12.7); Neutrophils % 61.5 % (38.7-73.9); Platelet Count 218 T/CUMM (130-400); Red Blood Count 4.63 MC/CUMM (3.8-5.5); Red Cell Distribution Width 12.7 % (9.3-17.3); White Blood Count 5.9 T/CUMM (4-12)
[2020-12-29 02:22] LABS: Alanine Aminotransferase 12 U/L (13-56); Albumin 3.2 G/DL (3.4-5.0); Alkaline Phosphatase 92 U/L (45-117); Aspartate Amino Transferase 17 U/L (0-37); Bilirubin,Total < 0.39 MG/DL (0.20-1.00); Blood Urea Nitrogen 18 MG/DL (7-18); Calcium 8.9 MG/DL (8.5-10.1); Carbon Dioxide 28 MMOL/L (21-32); Estimated Glom Filtration Rate 44 ML/MIN; Glucose 120 MG/DL (74-106); Osmolality,Calculated 279.5 MOS/KG (273-304); Potassium 3.4 MMOL/L (3.5-5.1); Sodium 139 MMOL/L (136-145)
[2020-12-29 04:09] LABS: Bacteria,Urine Occasional /HPF (Few); Bilirubin,Urine Negative (Negative); Blood, Urine Negative (Negative); Glucose,Urine (UA) Negative (Negative); Ketones,Urine Negative (Negative); Mucus,Urine Occasional /LPF (Occasional); Nitrite,Urine Negative (Negative); Protein,Urine Negative; RBC,Urine 1 /HPF (0-4); Squamous Epithelial Cell,Urine Occasional /HPF (0-10); Urine Appearance Slightly Hazy (Clear); Urine Color Yellow (Yellow); Urine Urobilinogen < 2.0 EU/DL (0.2-1.0)
[2020-12-29] MEDS ORDERED: DEXTROSE 50% 25 GM/50 ML VIAL IV PRN (05:03)
[2020-12-29] MEDS ORDERED: hydrALAZINE 20 MG/1 ML VIAL IV PRN (05:03)
[2020-12-29] MEDS ORDERED: ACETAMINOPHEN 325 MG TABLET PO PRN (05:03)
[2020-12-29] MEDS ORDERED: GLUCAGON 1 MG VIAL IM PRN (05:03)
[2020-12-29] MEDS ORDERED: ONDANSETRON 4 MG/2 ML VIAL IV PRN (05:03)
[2020-12-29] MEDS ORDERED: ALUMINUM/MAGNES/SIMETH MAX STR 30 ML UDCUP PO PRN (05:03)
[2020-12-29] MEDS: cefTRIAXone 1,000 MG in SODIUM CHLORIDE 0.9% 100 ML IV SCH (06:50)
[2020-12-29] MEDS ORDERED: metroNIDAZOLE INJ 500 MG/100 ML PREMIX IV SCH (07:00)
[2020-12-29] MEDS: SODIUM CHLORIDE 0.9% 1,000 ML IV SCH (07:50)
[2020-12-29] MEDS: PHENAZOPYRIDINE 95 MG TABLET PO SCH ×2 (07:51→17:05)
[2020-12-29] MEDS: DOCUSATE SODIUM 100 MG CAPSULE PO SCH ×2 (08:03→20:46)
[2020-12-29] MEDS ORDERED: ENOXAPARIN 40 MG/0.4 ML SYRINGE SUBCUT SCH (09:00)
[2020-12-29] MEDS: POTASSIUM CHLORIDE 20 MEQ TABLET PO PRN ×3 (10:35→17:04)
[2020-12-29] MEDS: MAGNESIUM CHLORIDE 64 MG TABLET PO SCH (14:31)
[2020-12-29] MEDS: POLYETHYLENE GLYCOL POWDER 17 GM PACK PO SCH (14:31)
[2020-12-29] MEDS ORDERED: MAGNESIUM CITRATE 300 ML BOTTLE PO ONE (16:30)
[2020-12-30 05:50] LABS: Basophils % 0.8 % (0.0-0.8); Eosinophils # 0.5 10*3/uL (0.0-0.87); Eosinophils % 9.6 % (0.00-10.9); Hematocrit 39.1 VOL% (35.7-47.0); Hemoglobin 12.8 GM/DL (12.0-16.0); Immature Granulocytes % 0.6 %; Immature Granulocytes Absolute 0.03 #; Lymphocytes # 1.1 10*3/uL (1.4-4.0); Lymphocytes % 20.9 % (21.3-54.2); Mean Corpuscular HGB Conc 32.7 GM/DL (32-36); Mean Corpuscular Volume 93.3 FL (87-102); Monocytes % 8.1 % (1.7-12.7); Platelet Count 214 T/CUMM (130-400); Red Blood Count 4.19 MC/CUMM (3.8-5.5); Red Cell Distribution Width 12.9 % (9.3-17.3); White Blood Count 5.3 T/CUMM (4-12)
[2020-12-30] MEDS: cefTRIAXone 1,000 MG in SODIUM CHLORIDE 0.9% 100 ML IV SCH (06:15)
[2020-12-30] MEDS: LEVOTHYROXINE 25 MCG TABLET PO SCH (06:15)
[2020-12-30 06:18] LABS: Calcium 8.7 MG/DL (8.5-10.1); Osmolality,Calculated 279.4 MOS/KG (273-304); Potassium 4.5 MMOL/L (3.5-5.1)
[2020-12-30] MEDS: amLODIPine 5 MG TABLET PO SCH (09:30)
[2020-12-30] MEDS: POLYETHYLENE GLYCOL POWDER 17 GM PACK PO SCH ×2 (09:31→23:06)
[2020-12-30] MEDS: DOCUSATE SODIUM 100 MG CAPSULE PO SCH ×2 (09:31→23:06)
[2020-12-30] MEDS: SERTRALINE 25 MG TABLET PO SCH (09:31)
[2020-12-30] MEDS: SIMVASTATIN 20 MG TABLET PO SCH (09:31)
[2020-12-30] MEDS: MAGNESIUM CHLORIDE 64 MG TABLET PO SCH (09:31)
[2020-12-30] MEDS: PHENAZOPYRIDINE 95 MG TABLET PO SCH ×2 (09:31→16:36)
[2020-12-30] MEDS: SODIUM CHLORIDE 0.9% 1,000 ML IV SCH ×2 (21:10→23:05)
[2020-12-31] MEDS: LEVOTHYROXINE 25 MCG TABLET PO SCH (06:40)
[2020-12-31] MEDS: cefTRIAXone 1,000 MG in SODIUM CHLORIDE 0.9% 100 ML IV SCH (08:28)
[2020-12-31] MEDS: MAGNESIUM CHLORIDE 64 MG TABLET PO SCH (08:29)
[2020-12-31] MEDS: SODIUM CHLORIDE 0.9% 1,000 ML IV SCH ×2 (08:29→11:17)
[2020-12-31] MEDS: amLODIPine 5 MG TABLET PO SCH (08:29)
[2020-12-31] MEDS: SIMVASTATIN 20 MG TABLET PO SCH (08:30)
[2020-12-31] MEDS: POLYETHYLENE GLYCOL POWDER 17 GM PACK PO SCH (08:30)
[2020-12-31] MEDS: PHENAZOPYRIDINE 95 MG TABLET PO SCH (08:30)
[2020-12-31] MEDS: DOCUSATE SODIUM 100 MG CAPSULE PO SCH (08:30)
[2020-12-31] MEDS: SERTRALINE 25 MG TABLET PO SCH (08:30)
[2020-12-31 12:07] VITALS: BP 133/66
[2020-12-31] MEDS ORDERED: AMOXICILLIN 500 MG CAPSULE PO SCH (15:00)
== END 2020-12-31 15:25 ==
LOC: EDUNIT# → EDBD → N.ED 00:52 → N.EDINP 00:52 → SUATTDRO 05:03 → N.5E 06:49
PROVIDERS: ADMIT Hospitalist; ATTEND Internal Medicine

== ENCOUNTER 2022-02-11 03:24 | Observation (INO) ==
[2022-02-11] MEDS ORDERED: SODIUM CHLORIDE 0.9% 500 ML IV STA (03:40)
[2022-02-11 04:51] LABS: Basophils % 0.2 % (0.0-0.8); Eosinophils % 0.4 % (0.00-10.9); Hemoglobin 14.7 GM/DL (12.0-16.0); Immature Granulocytes % 0.6 %; Immature Granulocytes Absolute 0.03 #; Lymphocytes # 0.6 10*3/uL (1.4-4.0); Lymphocytes % 10.7 % (21.3-54.2); Mean Corpuscular HGB Conc 32.7 GM/DL (32-36); Mean Corpuscular Volume 95.3 FL (87-102); Mean Platelet Volume 10.8 FL (9.6-12.0); Monocytes # 0.3 10*3/uL (0.11-0.8); Monocytes % 5.5 % (1.7-12.7); Neutrophils % 82.6 % (38.7-73.9); Platelet Count 179 T/CUMM (130-400); Red Blood Count 4.72 MC/CUMM (3.8-5.5); Red Cell Distribution Width 12.6 % (9.3-17.3); White Blood Count 5.4 T/CUMM (4-12)
[2022-02-11 05:01] LABS: Bacteria,Urine Many /HPF (Few); Bilirubin,Urine Negative (Negative); Blood, Urine Negative (Negative); Glucose,Urine (UA) Negative (Negative); Ketones,Urine Negative (Negative); Mucus,Urine Occasional /LPF (Occasional); Nitrite,Urine Positive (Negative); Protein,Urine 30 mg/dL (Negative); RBC,Urine 1 /HPF (0-4); Squamous Epithelial Cell,Urine Occasional /HPF (0-10); Urine Appearance CLOUDY (Clear); Urine Color Yellow (Yellow); Urine Specific Gravity 1.021 (1.001-1.035); Urine Urobilinogen < 2.0 eU/dL (<2.0)
[2022-02-11] MEDS ORDERED: cefTRIAXone 1,000 MG in SODIUM CHLORIDE 0.9% 100 ML IV STA (05:03)
[2022-02-11 05:10] LABS: Albumin 3.6 G/DL (3.4-5.0); Bilirubin,Total 0.4 MG/DL (0.20-1.00); Calcium 8.8 MG/DL (8.5-10.1); Osmolality,Calculated 289.3 MOS/KG (273-304); Potassium 3.5 MMOL/L (3.5-5.1)
[2022-02-11] MEDS ORDERED: ACETAMINOPHEN 325 MG TABLET PO PRN (05:23)
[2022-02-11] MEDS ORDERED: PROMETHAZINE 25 MG/1 ML VIAL IM PRN (05:23)
[2022-02-11] MEDS ORDERED: ONDANSETRON 4 MG/2 ML VIAL IV PRN (05:23)
[2022-02-11] MEDS ORDERED: IBUPROFEN 200 MG TABLET PO PRN (05:28)
[2022-02-11] MEDS ORDERED: IBUPROFEN 800 MG TABLET PO PRN (05:28)
[2022-02-11] MEDS ORDERED: SODIUM CHLORIDE 0.9% 1,000 ML IV SCH (05:30)
[2022-02-11] MEDS: LEVOTHYROXINE 25 MCG TABLET PO SCH (06:10)
[2022-02-11] MEDS ORDERED: CHOLECALCIFEROL 5,000 UNIT TABLET PO SCH (09:00)
[2022-02-11] MEDS: FLUTICASONE 50 MCG NASAL SPRAY 16 GM BOTTLE BOTH NARES SCH ×2 (09:37→17:36)
[2022-02-11] MEDS: ENOXAPARIN 40 MG/0.4 ML SYRINGE SUBCUT SCH (09:38)
[2022-02-11] MEDS: amLODIPine 10 MG TABLET PO SCH (09:40)
[2022-02-11] MEDS: PANTOPRAZOLE 40 MG TABLET PO SCH (09:40)
[2022-02-11] MEDS: SERTRALINE 25 MG TABLET PO SCH (09:40)
[2022-02-11] MEDS: OMEGA 3 ACID ETHYL ESTERS 1 GM CAPSULE PO SCH (09:40)
[2022-02-11] MEDS: ASPIRIN EC 81 MG TABLET PO SCH (09:40)
[2022-02-11] MEDS ORDERED: SIMVASTATIN 20 MG TABLET PO SCH (21:00)
[2022-02-12] MEDS ORDERED: cefTRIAXone 1,000 MG in SODIUM CHLORIDE 0.9% 100 ML IV SCH (05:00)
[2022-02-12] MEDS: LEVOTHYROXINE 25 MCG TABLET PO SCH (05:48)
[2022-02-12 06:00] LABS: Basophils % 0.5 % (0.0-0.8); Eosinophils # 0.4 10*3/uL (0.0-0.87); Eosinophils % 8.2 % (0.00-10.9); Hematocrit 40.8 VOL% (35.7-47.0); Hemoglobin 13.3 GM/DL (12.0-16.0); Immature Granulocytes % 0.2 %; Immature Granulocytes Absolute 0.01 #; Lymphocytes # 1.3 10*3/uL (1.4-4.0); Lymphocytes % 29.1 % (21.3-54.2); Mean Corpuscular HGB Conc 32.6 GM/DL (32-36); Mean Corpuscular Volume 94.2 FL (87-102); Mean Platelet Volume 11.2 FL (9.6-12.0); Monocytes # 0.5 10*3/uL (0.11-0.8); Monocytes % 10.2 % (1.7-12.7); Neutrophils % 51.8 % (38.7-73.9); Platelet Count 141 T/CUMM (130-400); Red Blood Count 4.33 MC/CUMM (3.8-5.5); Red Cell Distribution Width 12.5 % (9.3-17.3); White Blood Count 4.4 T/CUMM (4-12)
[2022-02-12 06:17] LABS: Alanine Aminotransferase 19 U/L (13-56); Albumin 2.9 G/DL (3.4-5.0); Alkaline Phosphatase 64 U/L (45-117); Aspartate Amino Transferase 19 U/L (0-37); Bilirubin,Total < 0.39 MG/DL (0.20-1.00); Blood Urea Nitrogen 23 MG/DL (7-18); Carbon Dioxide 23 MMOL/L (21-32); Chloride 110 MMOL/L (98-107); Glucose 89 MG/DL (74-106); Osmolality,Calculated 285.1 MOS/KG (273-304); Potassium 3.1 MMOL/L (3.5-5.1); Sodium 142 MMOL/L (136-145); Total Protein 6.7 G/DL (6.4-8.2)
[2022-02-12] MEDS ORDERED: POTASSIUM CHLORIDE 20 MEQ TABLET PO ONE (07:09)
[2022-02-12] MEDS: ENOXAPARIN 40 MG/0.4 ML SYRINGE SUBCUT SCH (09:15)
[2022-02-12] MEDS: PANTOPRAZOLE 40 MG TABLET PO SCH (09:17)
[2022-02-12] MEDS: amLODIPine 10 MG TABLET PO SCH (09:17)
[2022-02-12] MEDS: ASPIRIN EC 81 MG TABLET PO SCH (09:17)
[2022-02-12] MEDS: SERTRALINE 25 MG TABLET PO SCH (09:17)
[2022-02-12] MEDS: OMEGA 3 ACID ETHYL ESTERS 1 GM CAPSULE PO SCH (09:18)
[2022-02-12] MEDS: FLUTICASONE 50 MCG NASAL SPRAY 16 GM BOTTLE BOTH NARES SCH (09:18)
[2022-02-12 12:03] VITALS: BP 128/60
== END 2022-02-12 15:10 | disposition home or self-care (01) ==
LOC: SUATTDRO → N.EDINP 03:24 → N.ED 03:24 → N.2W 08:10
PROVIDERS: ADMIT Internal Medicine; ATTEND Internal Medicine